=== PATIENT | female | born 1950 | race Caucasian/White ===

== ENCOUNTER 2019-08-21 19:08 | Inpatient (IN) ==
[2019-08-21 19:38] LABS: Basophils # 0.1 K/mcL (0.0-0.2); Basophils % 0.6 %; Eosinophils # 0.2 K/mcL (0.0-0.6); Eosinophils % 2.3 %; Hematocrit 39.8 % (35.3-44.9); Hemoglobin 12.6 g/dL (11.5-15.4); Immature Granulocytes % 0.3 % (0-4); Lymphocytes % 25.6 %; Mean Corpuscular HGB Conc 31.7 g/dL (31.6-35.5); Mean Corpuscular Volume 94.8 fL (83.0-100.0); Mean Platelet Volume 9.9 fL (9.4-12.4); Monocytes # 0.5 K/mcL (0.0-1.3); Monocytes % 5.8 %; Neutrophils # 5.2 K/mcL (1.6-8.9); Platelet Count 302 K/mcL (140-400); Red Cell Distribution Width 12.6 % (11.5-14.5); Segmented Neutrophils % 65.4 %
[2019-08-21 19:58] LABS: Calcium 10.5 mg/dL (8.6-10.3); Potassium 4.2 mEq/L (3.5-5.1)
[2019-08-21 20:00] LABS: Troponin I 0.03 ng/mL (< 0.04)
[2019-08-22] MEDS ORDERED: Naloxone 0.4 MG/ML INJ IVP PRN (02:38)
[2019-08-22] MEDS ORDERED: Ondansetron 4 MG/2 ML VIAL IVP PRN (02:46)
[2019-08-22] MEDS: Ipratropium 1 PUFF INHALER IH SCH ×6 (04:08→23:44)
[2019-08-22 05:00] LABS: Hematocrit 37.6 % (35.3-44.9); Hemoglobin 11.9 g/dL (11.5-15.4); Mean Corpuscular HGB Conc 31.6 g/dL (31.6-35.5); Mean Corpuscular Volume 94.7 fL (83.0-100.0); Mean Platelet Volume 10.1 fL (9.4-12.4); Platelet Count 265 K/mcL (140-400); Red Blood Count 3.97 M/mcL (3.82-4.97); Red Cell Distribution Width 12.4 % (11.5-14.5); White Blood Count 7.7 K/mcL (4.3-11.1)
[2019-08-22 05:25] LABS: Calcium 10.2 mg/dL (8.6-10.3)
[2019-08-22 05:26] LABS: Troponin I 0.04 ng/mL (< 0.04)
[2019-08-22] MEDS: Mirabegron [Myrbetriq] 25 MG PO SCH (13:01)
[2019-08-22] MEDS ORDERED: Lithium Carbonate 300 MG CAPSULE PO SCH (18:00)
[2019-08-22] MEDS: *HR* LORazepam 1 MG TABLET PO SCH (20:06)
[2019-08-23] MEDS: Ipratropium 1 PUFF INHALER IH SCH ×6 (03:30→23:54)
[2019-08-23 04:22] LABS: Calcium 9.9 mg/dL (8.6-10.3)
[2019-08-23 04:23] LABS: Troponin I 0.03 ng/mL (< 0.04)
[2019-08-23] MEDS ORDERED: 0.9 % Sodium Chloride 1,000 ML IV ONE (08:02)
[2019-08-23] MEDS: amLODIPine 5 MG TABLET PO SCH (08:54)
[2019-08-23] MEDS: *HR* LORazepam 1 MG TABLET PO SCH ×3 (08:54→22:23)
[2019-08-23] MEDS: Mirabegron [Myrbetriq] 25 MG PO SCH (08:55)
[2019-08-23] MEDS ORDERED: Lithium Carbonate 300 MG CAPSULE PO SCH (09:00)
[2019-08-24] MEDS: Ipratropium 1 PUFF INHALER IH SCH ×6 (03:43→23:57)
[2019-08-24 06:58] VITALS: BP 130/62
[2019-08-24 07:07] LABS: BUN/Creatinine Ratio 21 (6-26); Blood Urea Nitrogen 23 mg/dL (8-23); Calcium 9.5 mg/dL (8.6-10.3); Carbon Dioxide 27 mEq/L (23-29); Chloride 108 mEq/L (98-107); Glucose 88 mg/dL (70-105); Osmolality,Calculated 291 (280-300); Potassium 4.2 mEq/L (3.5-5.1); Sodium 139 mEq/L (136-145); eGFR For African Americans > 60 (> 60); eGFR For Non-African Americans 51 (> 60)
[2019-08-24] MEDS: *HR* LORazepam 1 MG TABLET PO SCH (08:25)
[2019-08-24] MEDS: amLODIPine 5 MG TABLET PO SCH (08:25)
[2019-08-24] MEDS ORDERED: (Mirabegron [Myrbetriq] 25 MG) PO SCH (09:00)
== END 2019-08-24 19:00 | disposition home or self-care (01) | DRG 191 ==
LOC: EMEROOARM 19:08 → 2NENU 19:08 → SUATTDRO 22:32 → 2NENU 23:18 → 3ANU 08-23 21:32
PROVIDERS: ADMIT Family Medicine; ATTEND Internal Medicine

== ENCOUNTER 2020-10-29 21:06 | Inpatient (IN) ==
[2020-10-30] MEDS ORDERED: Melatonin 3 MG TABLET PO PRN (00:18)
[2020-10-30] MEDS ORDERED: Naloxone 0.4 MG/ML INJ IVP PRN (00:18)
[2020-10-30] MEDS ORDERED: Ondansetron 4 MG/2 ML VIAL IVP PRN (00:18)
[2020-10-30] MEDS: Lithium Carbonate 300 MG CAPSULE PO SCH ×3 (03:53→17:26)
[2020-10-30] MEDS: *HR* Heparin 5,000 UNIT/ML VIAL SQ SCH ×2 (05:17→17:26)
[2020-10-30] MEDS ORDERED: Albuterol 2.5 MG/3 ML NEBULIZER IH PRN (05:20)
[2020-10-30 05:21] LABS: Basophils % 0.1 %; Hematocrit 35.5 % (35.3-44.9); Hemoglobin 11.4 g/dL (11.5-15.4); Immature Granulocytes % 0.2 % (0-4); Lymphocytes # 0.7 K/mcL (0.6-4.6); Lymphocytes % 8.4 %; Mean Corpuscular HGB Conc 32.1 g/dL (31.6-35.5); Mean Corpuscular Hemoglobin 29.8 pg (28.0-33.3); Mean Corpuscular Volume 92.9 fL (83.0-100.0); Mean Platelet Volume 9.4 fL (9.4-12.4); Monocytes # 0.1 K/mcL (0.0-1.3); Monocytes % 1.4 %; Neutrophils # 7.6 K/mcL (1.6-8.9); Platelet Count 303 K/mcL (140-400); Red Blood Count 3.82 M/mcL (3.82-4.97); Red Cell Distribution Width 12.4 % (11.5-14.5); Segmented Neutrophils % 89.9 %; White Blood Count 8.5 K/mcL (4.3-11.1)
[2020-10-30] MEDS ORDERED: Perflutren Lipid Microsphere 1.3 ML in 0.9 % Sodium Chloride 8.7 ML IVP PRN (05:24)
[2020-10-30 05:28] LABS: INR 1.1; Prothrombin Time 12.4 Seconds (9.4-12.1)
[2020-10-30 05:31] LABS: Activated Partial Thrombo Time 29.4 Seconds (26.0-36.0)
[2020-10-30 05:46] LABS: Alanine Aminotransferase 14 Units/L (7-52); Albumin 3.9 g/dL (3.5-5.7); Albumin/Globulin Ratio 1.6 (1.1-2.2); Alkaline Phosphatase 75 Units/L (34-104); Aspartate Amino Transferase 14 Units/L (13-39); BUN/Creatinine Ratio 13 (6-26); Bilirubin,Total 0.3 mg/dL (0.3-1.0); Blood Urea Nitrogen 14 mg/dL (8-23); Carbon Dioxide 25 mEq/L (23-29); Chloride 105 mEq/L (98-107); Globulin 2.4 g/dL (2.4-3.5); Glucose 158 mg/dL (70-105); Osmolality,Calculated 288 (280-300); Phosphorous 2.7 mg/dL (2.7-4.5); Potassium 4.3 mEq/L (3.5-5.1); Sodium 137 mEq/L (136-145); Total Protein 6.3 g/dL (6.4-8.9); eGFR For African Americans > 60 (> 60); eGFR For Non-African Americans 51 (> 60)
[2020-10-30 05:52] LABS: Troponin I 0.09 ng/mL (< 0.04)
[2020-10-30] MEDS: Azithromycin 500 MG in 0.9 % Sodium Chloride 250 ML IVPB SCH (06:27)
[2020-10-30] MEDS: cefTRIAXone 1,000 MG in Water for inj. (sterile) 10 ML IVP SCH (07:57)
[2020-10-30] MEDS: predniSONE 20 MG TABLET PO SCH (07:57)
[2020-10-30] MEDS ORDERED: *HR* LORazepam 1 MG TABLET PO ONE (09:38)
[2020-10-30] MEDS: Ipratropium/Albuterol Neb 3 ML IH SCH ×3 (10:50→21:54)
[2020-10-30] MEDS ORDERED: Isovue-370 500 ML BOTTLE IVP ONE (14:09)
[2020-10-30] MEDS: *HR* LORazepam 1 MG TABLET PO PRN (17:51)
[2020-10-30] MEDS: GuaiFENesin/Codeine Oral Soln 5 ML UDC PO PRN (18:43)
[2020-10-30] MEDS: Acetaminophen 325 MG TABLET PO PRN (23:37)
[2020-10-31 03:03] LABS: Hematocrit 31.2 % (35.3-44.9); Hemoglobin 10.2 g/dL (11.5-15.4); Mean Corpuscular HGB Conc 32.7 g/dL (31.6-35.5); Mean Corpuscular Hemoglobin 31.2 pg (28.0-33.3); Mean Corpuscular Volume 95.4 fL (83.0-100.0); Mean Platelet Volume 10.1 fL (9.4-12.4); Platelet Count 227 K/mcL (140-400); Red Blood Count 3.27 M/mcL (3.82-4.97); Red Cell Distribution Width 12.7 % (11.5-14.5); White Blood Count 16.1 K/mcL (4.3-11.1)
[2020-10-31] MEDS: Ipratropium/Albuterol Neb 3 ML IH SCH ×4 (03:17→23:18)
[2020-10-31 03:22] LABS: Albumin 3.7 g/dL (3.5-5.7); Albumin/Globulin Ratio 1.7 (1.1-2.2); Bilirubin,Total 0.3 mg/dL (0.3-1.0); Calcium 9.8 mg/dL (8.6-10.3); Globulin 2.2 g/dL (2.4-3.5); Potassium 4.3 mEq/L (3.5-5.1); Total Protein 5.9 g/dL (6.4-8.9)
[2020-10-31] MEDS: GuaiFENesin/Codeine Oral Soln 5 ML UDC PO PRN ×4 (05:11→23:44)
[2020-10-31] MEDS: Azithromycin 500 MG in 0.9 % Sodium Chloride 250 ML IVPB SCH (05:13)
[2020-10-31] MEDS: *HR* Heparin 5,000 UNIT/ML VIAL SQ SCH ×2 (05:17→17:38)
[2020-10-31] MEDS: predniSONE 20 MG TABLET PO SCH (09:49)
[2020-10-31] MEDS: cefTRIAXone 1,000 MG in Water for inj. (sterile) 10 ML IVP SCH (09:49)
[2020-10-31] MEDS: Lithium Carbonate 300 MG CAPSULE PO SCH ×3 (09:49→17:38)
[2020-10-31] MEDS: amLODIPine 5 MG TABLET PO SCH (09:49)
[2020-10-31] MEDS: *HR* LORazepam 1 MG TABLET PO PRN ×2 (10:09→19:32)
[2020-10-31 10:25] LABS: Adenovirus Not Detected (Not Detect); Bordetella Pertussis Not Detected (Not Detect); Chlamydophila pneumoniae Not Detected (Not Detect); Coronavirus 229E Not Detected (Not Detect); Coronavirus HKU1 Not Detected (Not Detect); Coronavirus NL63 Not Detected (Not Detect); Coronavirus OC43 Not Detected (Not Detect); Human Metapneumovirus Not Detected (Not Detect); Human Rhinovirus/Enterovirus Not Detected (Not Detect); Influenza A Subtype 2009 H1 Not Detected (Not Detect); Influenza B Not Detected (Not Detect); Mycoplasma pneumoniae Not Detected (Not Detect); Parainfluenza Virus 1 Not Detected (Not Detect); Parainfluenza Virus 2 Not Detected (Not Detect); Parainfluenza Virus 3 Not Detected (Not Detect); Parainfluenza Virus 4 Not Detected (Not Detect); Respiratory Syncytial Virus Not Detected (Not Detect); SARS-CoV-2 Not Detected (Not Detect)
[2020-10-31] MEDS: Patient Taking Own Medication 1 EACH PO SCH (11:21)
[2020-11-01] MEDS: Ipratropium/Albuterol Neb 3 ML IH SCH ×4 (03:17→22:03)
[2020-11-01] MEDS: *HR* Heparin 5,000 UNIT/ML VIAL SQ SCH ×2 (05:08→18:20)
[2020-11-01] MEDS: GuaiFENesin/Codeine Oral Soln 5 ML UDC PO PRN ×4 (05:08→21:57)
[2020-11-01] MEDS: *HR* LORazepam 1 MG TABLET PO PRN ×3 (05:08→21:57)
[2020-11-01] MEDS: Azithromycin 500 MG in 0.9 % Sodium Chloride 250 ML IVPB SCH (05:08)
[2020-11-01 06:10] LABS: Hematocrit 33.3 % (35.3-44.9); Hemoglobin 10.6 g/dL (11.5-15.4); Mean Corpuscular HGB Conc 31.8 g/dL (31.6-35.5); Mean Corpuscular Hemoglobin 30.7 pg (28.0-33.3); Mean Corpuscular Volume 96.5 fL (83.0-100.0); Mean Platelet Volume 9.9 fL (9.4-12.4); Platelet Count 281 K/mcL (140-400); Red Blood Count 3.45 M/mcL (3.82-4.97); Red Cell Distribution Width 12.9 % (11.5-14.5)
[2020-11-01 06:32] LABS: Alanine Aminotransferase 11 Units/L (7-52); Albumin 3.8 g/dL (3.5-5.7); Albumin/Globulin Ratio 1.7 (1.1-2.2); Alkaline Phosphatase 73 Units/L (34-104); Aspartate Amino Transferase 16 Units/L (13-39); BUN/Creatinine Ratio 29 (6-26); Bilirubin,Total 0.2 mg/dL (0.3-1.0); Blood Urea Nitrogen 30 mg/dL (8-23); Carbon Dioxide 30 mEq/L (23-29); Chloride 101 mEq/L (98-107); Globulin 2.2 g/dL (2.4-3.5); Glucose 107 mg/dL (70-105); Osmolality,Calculated 291 (280-300); Potassium 4.5 mEq/L (3.5-5.1); Sodium 137 mEq/L (136-145); eGFR For African Americans > 60 (> 60); eGFR For Non-African Americans 53 (> 60)
[2020-11-01] MEDS: cefTRIAXone 1,000 MG in Water for inj. (sterile) 10 ML IVP SCH (09:16)
[2020-11-01] MEDS: predniSONE 20 MG TABLET PO SCH (09:18)
[2020-11-01] MEDS: Lithium Carbonate 300 MG CAPSULE PO SCH ×2 (09:19→18:20)
[2020-11-01] MEDS: amLODIPine 5 MG TABLET PO SCH (09:19)
[2020-11-01] MEDS: Patient Taking Own Medication 1 EACH PO SCH (09:19)
[2020-11-01] MEDS ORDERED: Budesonide/Formoterol 160/4.5 1 PUFF INH IH PRN (09:35)
[2020-11-01] MEDS ORDERED: Tiotropium 10 INH DOSE IH SCH (10:00)
[2020-11-01] MEDS: Budesonide/Formoterol 160/4.5 1 PUFF INH IH SCH ×2 (10:46→22:03)
[2020-11-01] MEDS: Acetaminophen 325 MG TABLET PO PRN (22:00)
[2020-11-02] MEDS: Ipratropium/Albuterol Neb 3 ML IH SCH ×2 (04:15→10:42)
[2020-11-02] MEDS: *HR* Heparin 5,000 UNIT/ML VIAL SQ SCH (04:57)
[2020-11-02] MEDS: Azithromycin 500 MG in 0.9 % Sodium Chloride 250 ML IVPB SCH (04:58)
[2020-11-02] MEDS: GuaiFENesin/Codeine Oral Soln 5 ML UDC PO PRN (05:03)
[2020-11-02 06:13] LABS: Hematocrit 35.2 % (35.3-44.9); Hemoglobin 10.6 g/dL (11.5-15.4); Mean Corpuscular HGB Conc 30.1 g/dL (31.6-35.5); Mean Corpuscular Hemoglobin 29.8 pg (28.0-33.3); Mean Corpuscular Volume 98.9 fL (83.0-100.0); Mean Platelet Volume 10.1 fL (9.4-12.4); Platelet Count 274 K/mcL (140-400); Red Blood Count 3.56 M/mcL (3.82-4.97); Red Cell Distribution Width 12.9 % (11.5-14.5); White Blood Count 17.4 K/mcL (4.3-11.1)
[2020-11-02 06:33] LABS: Alanine Aminotransferase 12 Units/L (7-52); Albumin 3.7 g/dL (3.5-5.7); Albumin/Globulin Ratio 1.7 (1.1-2.2); Alkaline Phosphatase 75 Units/L (34-104); Aspartate Amino Transferase 18 Units/L (13-39); BUN/Creatinine Ratio 33 (6-26); Bilirubin,Total 0.2 mg/dL (0.3-1.0); Blood Urea Nitrogen 34 mg/dL (8-23); Calcium 10.4 mg/dL (8.6-10.3); Carbon Dioxide 31 mEq/L (23-29); Chloride 102 mEq/L (98-107); Globulin 2.2 g/dL (2.4-3.5); Glucose 106 mg/dL (70-105); Osmolality,Calculated 292 (280-300); Potassium 4.5 mEq/L (3.5-5.1); Sodium 137 mEq/L (136-145); Total Protein 5.9 g/dL (6.4-8.9); eGFR For African Americans > 60 (> 60); eGFR For Non-African Americans 54 (> 60)
[2020-11-02 06:51] VITALS: BP 127/67; PULSE 77; TEMP 98.4; O2SAT 91
[2020-11-02] MEDS: Patient Taking Own Medication 1 EACH PO SCH (08:23)
[2020-11-02] MEDS: amLODIPine 5 MG TABLET PO SCH (08:26)
[2020-11-02] MEDS: predniSONE 20 MG TABLET PO SCH (08:26)
[2020-11-02] MEDS: Lithium Carbonate 300 MG CAPSULE PO SCH (08:26)
[2020-11-02] MEDS: *HR* LORazepam 1 MG TABLET PO PRN (09:12)
[2020-11-02] MEDS: Budesonide/Formoterol 160/4.5 1 PUFF INH IH SCH (10:42)
== END 2020-11-02 14:21 | disposition home or self-care (01) | DRG 190 ==
LOC: 3BNU → SUATTDRO 23:37
PROVIDERS: ADMIT Family Medicine; ATTEND Registered Nurse